=== PATIENT | female | born 1965 | race Caucasian/White ===

== ENCOUNTER → 2016-05-15 | Outpatient (CLI) | payer OTHER ==
[~2016-05-15] MED LIST: /CELE20CA PO; /DULO30CA OR; /GLYB5TA; /LAMO15TA PO; /ZOLP6ER PO; ACTO15TA OR; ALBU0.63 INH; AMBI10TA PO; ASPI81TA83 PO; BUPR15TA PO; BYETTA; CALC-136 PO; CELE50CA PO; CETI10TA PO; CINN500T PO; CINNAMON PO; CRANCAP11 PO; CRES5TAB PO; CYMB1CAP PO; FISH1000 PO; FLEC1.3D TD; FLECTOR PATCH TD; FLEXERIL OR; FLON0.05; GLIP5TAB2 OR; GLIP5TAB8 PO; GLUC500T; GLUC500T3 OR; GLUC850T OR; HYDR50IN3 PO; INSULANT SC; JANU100T PO; JANUVIA PO; LIDO5DIS; LIDO5DIS TD; LISI10TA4; LISI10TA4 PO; LOVAZA PO; LYRI75CA; LYRI75CA PO; MAXA10TA17 PO; MELA3TAB12 PO; METF-415 PO; NEXI20CA PO; OXYC1SOL PO; OXYCODONE IR PO; PERC7.5T12 PO; Pain Cream TD; ROSI4TA PO; TPS CREAM TOP; TRAM50TA2 PO; VICO5TAB OR; VITA500T53 PO; VYTO10TA5 PO; ZANA2CAP OR; ZANA4CAP PO; [UNRECOGNIZED DRUG - CODE] PO; [UNRECOGNIZED DRUG - CODE] PO; [UNRECOGNIZED DRUG - OTHER] OR; [UNRECOGNIZED DRUG - OTHER] PO; [UNRECOGNIZED DRUG - OTHER] PO
--- NOTE | 2016-05-19 00:09 | ECWPNPC ---
PATIENT NAME: RONY BAEZA : 1965 GENDER: FEMALE VISIT DATE: 05/15/2016 DISCHARGE DATE: 05/15/16 1607 VISIT LOCKED DATE TIME: PHYSICIAN: BRANDO GUNTER RESOURCE: BRANDO GUNTER REASON FOR APPOINTMENT 1. RECONSULT FIBROMYALGIA HISTORY OF PRESENT ILLNESS HISTORY OF PRESENT ILLNESS: HERE FOR RECONSULT OF FIBROMYALGIA.LAST WAS SEEN BY JUSTIN HART GAME AND FISH PROTECTOR IN OCTOBER 2014.CHIEF AREA OF PAIN NECK AND UPPER BACK.RATING PAIN VAS 8/10.HAD EPISODE OF PLAQUE PSORIASIS IN 2016 AFTER SEVERE SUNBURN.WAS ON CINDY X 2MOS WITH IMPROVEMENT IN [place].STATES BACK AND NECK HAS GOTTEN WORSE SINCE LAST VISIT.HISTORY OF SJORENS SYNDROME.HISTORY OF BILATERAL KNEE REPLACEMENT APROPXIMATLEY 2-3 YEARS AGO.REVIEWED CERVICAL MRI DONE 11-22-14.THIS IS SHOWING CERVICAL SPONDYLOSIS C3/4 THROUGH C6/7.SPINAL CORD COMPRESSION AT C3/4 LEVEL IS A NEW FINDING. FALL RISK SCREENING: SCREENING :NO FALLS IN THE PAST YEAR CURRENT MEDICATIONS TAKING METFORMIN HCL ER 750 MG TABLET EXTENDED RELEASE 24 HOUR 1 TABLET WITH EVENING MEAL ORALLY ONCE A DAY TAKING LANTUS 100 UNIT/ML SOLUTION SUBCUTANEOUS TAKING CYMBALTA 60 MG CAPSULE DELAYED RELEASE PARTICLES 1 CAPSULE ORALLY BID TAKING CELEBREX 200 MG CAPSULE 1 CAPSULE ORALLY ONCE A DAY TAKING WELLBUTRIN SR 150 MG TABLET EXTENDED RELEASE 12 HOUR 2 TABLET ORALLY TAKING NEXIUM 20 MG CAPSULE DELAYED RELEASE 1 CAPSULE ORALLY ONCE A DAY TAKING ASPIR-81 81 MG TABLET DELAYED RELEASE 1 TABLET ORALLY ONCE A DAY TAKING LISINOPRIL 5 MG TABLET ORALLY TAKING ZYRTEC ALLERGY 10 MG TABLET 1 TABLET ORALLY ONCE A DAY TAKING CHANTIX 1 MG TABLET 1 1/2 TABLET ORALLY DAILY TAKING CYCLOBENZAPRINE HCL 10 MG TABLET 1 TABLET ORALLY THREE TIMES A DAY TAKING PERCOCET 5-325 MG TABLET 1 TABLET NEEDED ORALLY EVERY 6 HRS MEDICATION LIST REVIEWED AND RECONCILED WITH THE PATIENT PAST MEDICAL HISTORY DIABETES HYPERLIPIDEMIA SMOKER PRESSION ALLERGIES PENICILLIN (FOR ALLERGIES USE ONLY): ANAPHYLAXIS MOTRIN: CRAMPIN SURGICAL HISTORY LEFT KNEE REPLACEMENT 2012 RIGHT KNEE REPLACEMENT 2013 TUBAL LIGATION 1994 FAMILY HISTORY FATHER: 61 YRS MOTHER: ALIVE SIBLINGS: ALIVE SISTER IN 2008 SUICIDEFATHER 2011 PANCREATIC CANCER. SOCIAL HISTORY GENERAL: TOBACCO USE ARE YOU A:CURRENT SMOKER HOW MANY CIGARETTES A DAY DO YOU SMOKE?6-10 HOW SOON AFTER YOU WAKE UP DO YOU SMOKE YOUR FIRST CIGARETTE?WITHIN 5 MIN PATIENT COUNSELED ON THE DANGERS OF TOBACCO USE AND URGED TO QUIT:05/15/2016 ARE YOU INTERESTED IN QUITTING?READY TO QUIT COUNSELED THE PATIENT ON TOBACCO USE, CESSATION [id number]/21/2017 SMOKING CESSATION INFORMATION GIVEN05/15/2016 OCCUPATION: CURRENTLY GOING TO SCHOOL. DIET: NO CONCENTRATED SWEETS.. EXERCISE: NO REGULAR EXERCISE, WALKS. MARITAL STATUS: . JAINISM: NO PREFERENCE. LANGUAGE: JAPANESE. LEARNING BARRIERS / SPECIAL NEEDS ORIENTED TO PLAN OF CARE: PATIENT, PAIN MANAGEMENT PATIENT, ORIENTED TO PLAN OF CARE: PATIENT, PAIN MANAGEMENT PATIENT. NEW PATIENT PAIN DIARY TODAY'S VISITNOTES FROM 0-10, WHAT LEVEL IS YOUR PAIN TODAY?0 PAIN CLINIC PFS, CLERGY, PUBLIC HEALTH REFERRALS PFS REFERRAL NEEDED?NO CLERGY REFERRAL NEEDED?NO PUBLIC HEALTH REFERRAL NEEDED?NO WAS THE PROVIDER NOTIFIED OF ANY PERTINENT INFO?NO PFS REFERRAL NEEDED?NO CLERGY REFERRAL NEEDED?NO PUBLIC HEALTH REFERRAL NEEDED?NO WAS THE PROVIDER NOTIFIED OF ANY PERTINENT INFO?NO REVIEW OF SYSTEMS CONSTITUTIONAL: ANY CHANGE IN YOUR MEDICAL CONDITION? NO . RECENT ILLNESS DENIES . CHILLS NO . FEVER NO . WEIGHT LOSS DENIES . INFECTION: DO YOU HAVE NEW INFECTIONS? NO . DO YOU HAVE HISTORY OF MRSA? NO . MUSCULOSKELETAL: ANY NEW PATTERNS OF PAIN OR NUMBNESS? NO . GASTROENTEROLOGY: ANY NEW CHANGE IN BOWEL CONTROL? NO . GENITOURINARY: ANY NEW CHANGE IN BLADDER CONTROL? NO . IS THERE A CHANCE YOU COULD BE ? NO . HEMATOLOGY/LYMPH: DO YOU TAKE ANY BLOOD THINNERS? (FOR EXAMPLE- COUMADIN, PLAVIX, AGGRENOX, PLATEL, PRADAXA, OR XARELTO) NO . WHEN WAS YOUR LAST DOSE? DATE: TIME: . NEUROLOGY: HAVE YOU FALLEN IN THE PAST 6 MONTHS? NO . ANY NEW EXTREMITY NUMBNESS OR WEAKNESS? NO . CARDIOLOGY: DO YOU HAVE A PACEMAKER OR DEFIBRILLATOR? NO . CHEST PAIN DENIES . SHORTNESS OF BREATH DENIES . RESPIRATORY: HAVE YOU BEEN SICK IN THE PAST WEEK? NO . FEVER NO . FLU LIKE SYMPTOMS? NO . COUGH NO, DENIES . SHORTNESS OF BREATH DENIES . INTEGUMENTARY: DO YOU HAVE ANY RASHES OR OPEN SORES? NO . ALLERGIC/IMMUNO: ARE YOU ALLERGIC TO SHELLFISH OR IV DYE? NO . ANY NEW ALLERGIES? NO . PSYCHIATRIC: DO YOU HAVE THOUGHTS OF HURTING YOURSELF OR SOMEONE ELSE? NO . ARE YOU ABUSED, NEGLECTED, OR IN AN UNSAFE ENVIRONMENT? NO . ENDOCRINOLOGY: ARE YOU DIABETIC? NO . OTHER: DO YOU NEED ANY PRESCRIPTIONS? YES . IF YES, PLEASE LIST: ____ . ANY NEW PROBLEMS WITH YOUR MEDICATIONS? NO . WHEN DID YOU LAST EAT? ____ . WHEN DID YOU LAST DRINK? ____ . WHAT DID YOU LAST DRINK? ____ . NAME OF PERSON DRIVING YOU HOME? ____ . DO YOU HAVE ANY OTHER QUESTIONS OR CONCERNS NO . REVIEWED BY: PROVIDER: BRANDO ALMODOVAR . VITAL SIGNS WT 215.6 LBS, HT 63.3 IN, BMI 37.83 INDEX, BP 133/89 MM HG, HR 103 /MIN, RR 16 /MIN, TEMP 97.0 F, OXYGEN SAT % 95%, REVIEWED BY: KG. EXAMINATION GENERAL EXAMINATION: LUNGS:LUNG SOUNDS ARE CLEAR. HEART:HEART RATE REGULAR. MUSCULOSKELETAL:*, MUSCLE STRENGTH TESTING 5/5 BILATERAL UPPER AND LOWER EXTREMITIES.PALPATION: POSITIVE FOR PAIN OVER L/S SPINE. POSITIVE FOR PAIN OVER L/S PARASPINALS.POSITIVE FOR PAIN OVER CERVICAL AXIS AND CERVICAL SPINALS.ROJM NECK AND LOW BACK IS FULL WITH INCREASE IN PAIN NOTED. . DIAGNOSTIC:MRI CERVICAL TMBUW-12-18-2015-REVIEWED.. ASSESSMENTS CERVICAL SPONDYLOLYSIS - M43.02 (PRIMARY) MYALGIA - M79.1 TREATMENT CERVICAL SPONDYLOLYSIS START LYRICA CAPSULE, 75 MG, 1 CAPSULE, ORALLY, TWICE A DAY MDD2, 30 DAY(S), 60, REFILLS 2 INJECTION FACET JOINT/NERVE CERVICAL LEFT INJECTION FACET JOINT/NERVE CERVICAL RIGHT PREVENTIVE MEDICINE PAIN CLINIC TEACHING: MEDITATION LYRICA EDUCATION PROVIDED. PROCEDURE CODES FA211 ESTABILISHED PATIENT [facility] CHARGE DISPOSITION & COMMUNICATION FOLLOW UP 2WK POST Torito ANDERSON (REASON: BILAT. C4/5-C5/6 THERAPEUTIC FACET BLOCK) ELECTRONICALLY SIGNED BY SCOOBY ARELLANO ON 05/18/2016 AT 04:56 PM EST DISCLAIMER : THIS IS A VISIT SUMMARY EXTRACTED FROM THE [employer] CHART. IT IS NOT A COPY OF THE [employer] PROGRESS NOTE. EMMANUEL
== END ==
LOC: M PAIN 14:20
PROVIDERS: ATTEND Nurse Practitioner Family
DX: G89.29 Other chronic pain (principal); M79.7 Fibromyalgia; M43.02 Spondylolysis, cervical region; E11.9 Type 2 diabetes mellitus without complications; E78.5 Hyperlipidemia, unspecified; F17.200 Nicotine dependence, unspecified, uncomplicated; Z88.0 Allergy status to penicillin; Z88.6 Allergy status to analgesic agent; Z79.84 Long term (current) use of oral hypoglycemic drugs; Z79.82 Long term (current) use of aspirin; Z79.891 Long term (current) use of opiate analgesic; Z79.899 Other long term (current) drug therapy

== ENCOUNTER → 2016-06-19 | Outpatient (CLI) | payer OTHER ==
[~2016-06-19] MED LIST changes: +BUPIVACAINE HCL 0.25% 30 ML VIAL As Ordered ONE; +ISOVUE-M 300 61% 15ML VIAL (Q9967) As Ordered ONE; +LIDOCAINE 1% SDV INJ 30 ML VIAL As Ordered ONE; +TRIAMCINOLONE ACETONIDE SUSP 40 MG/ML VIAL (J3301) As Ordered ONE; +diazePAM 5 MG TAB As Ordered ONE; +oxyCODONE 5MG TAB As Ordered ONE
--- NOTE | 2016-06-19 10:44 | REP ---
FLUOROSCOPIC GUIDANCE FOR CERVICAL FACET BLOCK: 06/19/2016. Clinical history: Neck pain. Findings: A single image from C-arm fluoroscopy provided to Dr. Wright of the pain clinic for bilateral cervical facet block. [place] overlie the pelvis and facets at C7 and C6. Fluoroscopy time: 28 seconds. Signed by Parth Camarena MD 06/19/2016 05:05 P
--- NOTE | 2016-06-22 00:46 | ECWPNPC ---
PATIENT NAME: RONY BAEZA : 1965 GENDER: FEMALE VISIT DATE: 06/19/2016 DISCHARGE DATE: 06/19/16 1035 VISIT LOCKED DATE TIME: PHYSICIAN: BARRERA CURTIS RESOURCE: BARRERA CURTIS REASON FOR APPOINTMENT 1. RIGHT CERVICAL FACET HISTORY OF PRESENT ILLNESS HISTORY OF PRESENT ILLNESS: PAIN THE PATIENT DESCRIBES THE PAIN... FALL RISK SCREENING: SCREENING :NO FALLS IN THE PAST YEAR CURRENT MEDICATIONS TAKING METFORMIN HCL ER 750 MG TABLET EXTENDED RELEASE 24 HOUR 1 TABLET WITH EVENING MEAL ORALLY TWICE A DAY, NOTES: 06-18-16 PM TAKING LANTUS 100 UNIT/ML SOLUTION 70 UNITS SUBCUTANEOUS ONCE DAILY, NOTES: 06-18-16 PM TAKING CYMBALTA 60 MG CAPSULE DELAYED RELEASE PARTICLES 1 CAPSULE ORALLY BID, NOTES: 06-18-16 PM TAKING CELEBREX 200 MG CAPSULE 1 CAPSULE ORALLY ONCE A DAY, NOTES: 06-18-16 AM TAKING WELLBUTRIN SR 150 MG TABLET EXTENDED RELEASE 12 HOUR 2 TABLET ORALLY , NOTES: 06-18-16 AM TAKING NEXIUM 20 MG CAPSULE DELAYED RELEASE 1 CAPSULE ORALLY ONCE A DAY, NOTES: 06-18-16 AM TAKING ASPIR-81 81 MG TABLET DELAYED RELEASE 1 TABLET ORALLY ONCE A DAY, NOTES: 06-18-16 PM TAKING LISINOPRIL 5 MG TABLET ORALLY DAILY, NOTES: 06-18-16 PM TAKING ZYRTEC ALLERGY 10 MG TABLET 1 TABLET ORALLY ONCE A DAY, NOTES: 06-18-16 PM TAKING CYCLOBENZAPRINE HCL 10 MG TABLET 1 TABLET ORALLY THREE TIMES A DAY, NOTES: COUPLE DAYS AGO NOT-TAKING PERCOCET 5-325 MG TABLET 1 TABLET NEEDED ORALLY EVERY 6 HRS, NOTES: NO PILLS NOT-TAKING LYRICA 75 MG CAPSULE 1 CAPSULE ORALLY TWICE A DAY MDD2, NOTES: NO PILLS DISCONTINUED CHANTIX 1 MG TABLET 1 1/2 TABLET ORALLY DAILY MEDICATION LIST REVIEWED AND RECONCILED WITH THE PATIENT PAST MEDICAL HISTORY DIABETES HYPERLIPIDEMIA SMOKER PRESSION ALLERGIES PENICILLIN (FOR ALLERGIES USE ONLY): ANAPHYLAXIS MOTRIN: CRAMPIN ERYTHROMYCIN: NAUSEA: CONTRAINDICATION REVIEW OF SYSTEMS CONSTITUTIONAL: ANY CHANGE IN YOUR MEDICAL CONDITION? NO . CHILLS NO . FEVER NO . INFECTION: DO YOU HAVE NEW INFECTIONS? NO . DO YOU HAVE HISTORY OF MRSA? NO . MUSCULOSKELETAL: ANY NEW PATTERNS OF PAIN OR NUMBNESS? YES, BETWEEN SHOULDER BLADES IS TINGLY . GASTROENTEROLOGY: ANY NEW CHANGE IN BOWEL CONTROL? NO . GENITOURINARY: ANY NEW CHANGE IN BLADDER CONTROL? NO . IS THERE A CHANCE YOU COULD BE ? NO . HEMATOLOGY/LYMPH: DO YOU TAKE ANY BLOOD THINNERS? (FOR EXAMPLE- COUMADIN, PLAVIX, AGGRENOX, PLATEL, PRADAXA, OR XARELTO) NO . WHEN WAS YOUR LAST DOSE? DATE: TIME: . NEUROLOGY: HAVE YOU FALLEN IN THE PAST 6 MONTHS? NO . ANY NEW EXTREMITY NUMBNESS OR WEAKNESS? NO . CARDIOLOGY: DO YOU HAVE A PACEMAKER OR DEFIBRILLATOR? NO . RESPIRATORY: HAVE YOU BEEN SICK IN THE PAST WEEK? NO . FEVER NO . FLU LIKE SYMPTOMS? NO . COUGH NO . INTEGUMENTARY: DO YOU HAVE ANY RASHES OR OPEN SORES? NO . ALLERGIC/IMMUNO: ARE YOU ALLERGIC TO SHELLFISH OR IV DYE? NO . ANY NEW ALLERGIES? NO . PSYCHIATRIC: DO YOU HAVE THOUGHTS OF HURTING YOURSELF OR SOMEONE ELSE? NO . ARE YOU ABUSED, NEGLECTED, OR IN AN UNSAFE ENVIRONMENT? NO . ENDOCRINOLOGY: ARE YOU DIABETIC? YES . OTHER: DO YOU NEED ANY PRESCRIPTIONS? YES . IF YES, PLEASE LIST: NEEDS PRIOR AUTH FOR LYRICA . ANY NEW PROBLEMS WITH YOUR MEDICATIONS? NO . WHEN DID YOU LAST EAT? 06-18-16 PM . WHEN DID YOU LAST DRINK? 06-18-16 PM . WHAT DID YOU LAST DRINK? DIET PEPSI . NAME OF PERSON DRIVING YOU HOME? RAJI BAEZA . DO YOU HAVE ANY OTHER QUESTIONS OR CONCERNS NO . REVIEWED BY: PROVIDER: . VITAL SIGNS WT 220 LBS, HT 63.3 IN, BMI 38.60 INDEX, BP 108/68 MM HG, HR 89 /MIN, RR 16 /MIN, TEMP 96.2 F, OXYGEN SAT % 98, NA INITIALS TL 0852, REVIEWED BY: CM. 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 BARRERA CURTIS TRIAL JUSTICE NONE ANESTHESIA LOCAL PRE PROCEDURE NOTE THE PATIENT HAS HISTORY OF CHRONIC CERVICAL PAIN. I EVALUATE THE PATIENT AND REVIEWED THE CHART. I WENT OVER THE RISKS, ALTERNATIVES, AND BENEFITS ASSOCIATED WITH THIS PROCEDURE. THE PATIENT WOULD LIKE TO PROCEED AND GIVE CONSENT TO PERFORMED THE PROCEDURE. THE PATIENT DENIES UNEXPLAINABLE WEIGHT LOSS, FEVER, CHILLS, OR NEW CHANGES IN URINARY OR BOWEL CONTROL DESCRIPTION OF PROCEDURE THE PATIENT WAS BROUGHT TO THE PROCEDURE ROOM AND PLACED IN THE PRONE POSITION. THE CERVICOTHORACIC AREA WAS CLEANED WITH CHLORAPREP SOLUTION AND DRAPED ASEPTICALLY. THE PROCEDURE WAS DONE UNDER STERILE CONDITIONS. I CHECKED LATERALITY AND THE LEVEL WHERE THE PROCEDURE WAS GOING TO BE PERFORMED WITH THE PATIENT AND THE SUPPORTING STAFF AT THE MOMENT OF THE TIME OUT IN THE PROCEDURE ROOM. UNDER FLUOROSCOPIC GUIDANCE, TARGET POINT WAS SELECTED AT THE RIGHT AND LEFT C6-C7 AND RIGHT AND LEFT C7-T1 CERVICAL FACET JOINT. TARGET POINTS WERE SELECTED AFTER LATERAL ROTATION AND TILT OF THE MAGNIFIER OF THE C-ARM. LIDOCAINE 0.5% WAS USED TO NUMB THE SKIN AND THE SUBCUTANEOUS TISSUE BELOW IT. SPINAL NEEDLES, 22-GAUGE, WERE ADVANCED UNDER FLUOROSCOPIC GUIDANCE AND FOLLOWING PATIENT FEEDBACK UNTIL THE TARGETS WERE TOUCHED. THE POSITION OF THE NEEDLES WAS VERIFIED WITH AP AND LATERAL VIEWS. AFTER PROPER POSITION OF THE NEEDLES WAS ACHIEVED, ISOVUE M DYE 30, 0.1 ML WAS INJECTED SHOWING SPREAD OF THE DYE. THEN A SOLUTION OF 0.9 ML OF BUPIVACAINE 0.125% AND KENALOG 10 MG WAS INJECTED AT EACH SITE. THERE WAS NO EVIDENCE OF BLOOD, PARESTHESIA OR CEREBROSPINAL FLUID DURING THE PROCEDURE. THE PATIENT WAS SENT TO THE RECOVERY ROOM. THE PATIENT WAS MOVING THE EXTREMITIES AND DOING WELL. THERE WAS NO COMPLICATION DURING THE PROCEDURE. FLUOROSCOPY TIME WAS 28 SECONDS POST PROCEDURE NOTE THE PATIENT WILL BE SEEN IN A FOLLOW UP IN THE NEXT FEW WEEKS. INSTRUCTIONS WERE GIVEN, QUESTIONS WERE ANSWERED, AND THE PATIENT EXPRESSED UNDERSTANDING AND AGREES WITH THE PLAN. I, SELINA BELL, DOCUMENTED THE ABOVE INFORMATION ACTING A SCRIBE FOR DR. CURTIS. I, DR. CURTIS, HAVE REVIEWED THE ABOVE DOCUMENT, SCRIBED BY SELINA BELL, AND I VERIFY THAT IT IS ACCURATE DIAGNOSTIC IMAGING [facility] FACET BLOCK (PAIN)[id number] PROCEDURE CODES 27719 INJ PARAVERT F JNT C/T 1 LEV 99551 INJ PARAVERT F JNT C/T 2 LEV 6045F RADXPS IN END [id number] PXD DISPOSITION & COMMUNICATION FOLLOW UP 3 WEEKS ELECTRONICALLY SIGNED BY BARRERA CURTIS MD ON 06/21/2016 AT 01:48 PM EDT DISCLAIMER : THIS IS A VISIT SUMMARY EXTRACTED FROM THE [employer] CHART. IT IS NOT A COPY OF THE [employer] PROGRESS NOTE. MTDD
== END ==
LOC: M PAIN 08:40
PROVIDERS: ATTEND Anesthesiology
DX: G89.29 Other chronic pain (principal); M47.812 Spondylosis without myelopathy or radiculopathy, cervical region; M47.813 Spondylosis without myelopathy or radiculopathy, cervicothoracic region; E11.9 Type 2 diabetes mellitus without complications; E78.5 Hyperlipidemia, unspecified; F17.200 Nicotine dependence, unspecified, uncomplicated; Z88.0 Allergy status to penicillin; Z88.6 Allergy status to analgesic agent; Z88.1 Allergy status to other antibiotic agents; Z79.84 Long term (current) use of oral hypoglycemic drugs; Z79.82 Long term (current) use of aspirin; Z79.899 Other long term (current) drug therapy
CPT/HCPCS: 64490; 64491; J3301; Q9967

== ENCOUNTER → 2016-07-24 | Outpatient (CLI) | payer OTHER ==
[~2016-07-24] MED LIST changes: -BUPIVACAINE HCL 0.25% 30 ML VIAL As Ordered ONE; -ISOVUE-M 300 61% 15ML VIAL (Q9967) As Ordered ONE; -LIDOCAINE 1% SDV INJ 30 ML VIAL As Ordered ONE; -TRIAMCINOLONE ACETONIDE SUSP 40 MG/ML VIAL (J3301) As Ordered ONE; -diazePAM 5 MG TAB As Ordered ONE; -oxyCODONE 5MG TAB As Ordered ONE
--- NOTE | 2016-07-31 01:17 | ECWPNPC ---
PATIENT NAME: RONY BAEZA : 1965 GENDER: FEMALE VISIT DATE: 07/24/2016 DISCHARGE DATE: 07/24/16 1553 VISIT LOCKED DATE TIME: PHYSICIAN: JUSTIN HART RESOURCE: JUSTIN HART REASON FOR APPOINTMENT 1. POST PROCEDURE HISTORY OF PRESENT ILLNESS HISTORY OF PRESENT ILLNESS: PAIN THE PATIENT DESCRIBES THE PAIN... FALL RISK SCREENING: SCREENING :NO FALLS IN THE PAST YEAR TODAY'S VISIT: NOTES: RATES PAIN TODAY 8/10.DESCRIBES PAIN ACHING, BURNING, AND CONSTANT., SHARP AND STABBING.HAS BEEN OUT OF CYMBALTA X 1-2 DAYS, CELEBREX X 2 WEEKS.AND FLEXERIL X 2 WEEKS. WAS ON HUMIRA X 4 DOSES AND THEN PSORIASIS WENT INTO REMISSION AND HAS NOT BEEN ON IT IN 1 YEAR. WAS NOT ABLE TO GET LYRICA - WAS TOLD AT PHARMACY NEEDED PRIOR AUTH FROM . HAS BEEN OFF LYRICA X 1 YEAR. CENTER OF BACK AND SHOULDERS HURTS THE MOST. FELL 2 WEEKS AGO - TRIPPED OVER FEET. CAN HEAR GRING=DING IN NECK. AND ALONG SPINE BETWEEN SHOULDER BLADES.IS S/P BILATERAL THERAPEUTIC CERVICAL FACET BLOCK ON06/19/16. HAD PAIN RELIEF FOR 2 DAYS AND THEN THE NUMB TINGLING DISCOMFORT RETURNED AT NECK AND ACROSS THE SHOULDERS.. CURRENT MEDICATIONS TAKING METFORMIN HCL ER 750 MG TABLET EXTENDED RELEASE 24 HOUR 1 TABLET WITH EVENING MEAL ORALLY TWICE A DAY TAKING LANTUS 100 UNIT/ML SOLUTION 70 UNITS SUBCUTANEOUS ONCE DAILY TAKING CYMBALTA 60 MG CAPSULE DELAYED RELEASE PARTICLES 1 CAPSULE ORALLY BID TAKING CELEBREX 200 MG CAPSULE 1 CAPSULE ORALLY ONCE A DAY TAKING WELLBUTRIN SR 150 MG TABLET EXTENDED RELEASE 12 HOUR 2 TABLET ORALLY TAKING NEXIUM 20 MG CAPSULE DELAYED RELEASE 1 CAPSULE ORALLY ONCE A DAY TAKING ASPIR-81 81 MG TABLET DELAYED RELEASE 1 TABLET ORALLY ONCE A DAY TAKING LISINOPRIL 5 MG TABLET ORALLY DAILY TAKING ZYRTEC ALLERGY 10 MG TABLET 1 TABLET ORALLY ONCE A DAY TAKING CYCLOBENZAPRINE HCL 10 MG TABLET 1 TABLET ORALLY THREE TIMES A DAY TAKING EXCEDRIN MIGRAINE 250-250-65 MG TABLET 2 TABLETS NEEDED ORALLY EVERY 6 HRS NEEDED NOT-TAKING PERCOCET 5-325 MG TABLET 1 TABLET NEEDED ORALLY EVERY 6 HRS, NOTES: NO PILLS NOT-TAKING LYRICA 75 MG CAPSULE 1 CAPSULE ORALLY TWICE A DAY MDD2, NOTES: NO PILLS MEDICATION LIST REVIEWED AND RECONCILED WITH THE PATIENT PAST MEDICAL HISTORY DIABETES HYPERLIPIDEMIA SMOKER PRESSION ALLERGIES PENICILLIN (FOR ALLERGIES USE ONLY): ANAPHYLAXIS MOTRIN: CRAMPIN ERYTHROMYCIN: NAUSEA: CONTRAINDICATION REVIEW OF SYSTEMS CONSTITUTIONAL: ANY CHANGE IN YOUR MEDICAL CONDITION? YES , MORE FREQ MIGRAINES // VERY SEVERE!! NEW PSORIASIS DX . CHILLS NO . FEVER NO . INFECTION: DO YOU HAVE NEW INFECTIONS? NO . DO YOU HAVE HISTORY OF MRSA? NO . MUSCULOSKELETAL: ANY NEW PATTERNS OF PAIN OR NUMBNESS? YES, MUSCLE SPASMS IN TOES, ANKLE, LEFT HIP, ARCH OF FOOT . GASTROENTEROLOGY: ANY NEW CHANGE IN BOWEL CONTROL? NO . GENITOURINARY: ANY NEW CHANGE IN BLADDER CONTROL? NO . IS THERE A CHANCE YOU COULD BE ? NO . HEMATOLOGY/LYMPH: DO YOU TAKE ANY BLOOD THINNERS? (FOR EXAMPLE- COUMADIN, PLAVIX, AGGRENOX, PLATEL, PRADAXA, OR XARELTO) NO . WHEN WAS YOUR LAST DOSE? DATE: TIME: . NEUROLOGY: HAVE YOU FALLEN IN THE PAST 6 MONTHS? YES, 2 WEEKS AGO. JUST FELL OVER ON HER LEFT SIDE AND LANDED ON SHOULDER . ANY NEW EXTREMITY NUMBNESS OR WEAKNESS? NO . CARDIOLOGY: DO YOU HAVE A PACEMAKER OR DEFIBRILLATOR? NO . RESPIRATORY: HAVE YOU BEEN SICK IN THE PAST WEEK? NO . FEVER NO . FLU LIKE SYMPTOMS? NO . DO YOU USE ANY TYPE OF TOBACCO (SMOKE, SMOKELESS, CHEW)? HAS STOPPED SMOKING BUT DOES OCCASIONALLY CHEAT . COUGH NO . INTEGUMENTARY: DO YOU HAVE ANY RASHES OR OPEN SORES? NO . ALLERGIC/IMMUNO: ARE YOU ALLERGIC TO SHELLFISH OR IV DYE? NO . ANY NEW ALLERGIES? NO . PSYCHIATRIC: DO YOU HAVE THOUGHTS OF HURTING YOURSELF OR SOMEONE ELSE? NO . ARE YOU ABUSED, NEGLECTED, OR IN AN UNSAFE ENVIRONMENT? NO . ENDOCRINOLOGY: ARE YOU DIABETIC? YES STABLE WHEN TAKES INSULIN DIRECTED. . OTHER: DO YOU NEED ANY PRESCRIPTIONS? YES . IF YES, PLEASE LIST: FLEXERIL, CYMBALTA, CELEBREX, PAIN MED . ANY NEW PROBLEMS WITH YOUR MEDICATIONS? NO . WHEN DID YOU LAST EAT? ____ . WHEN DID YOU LAST DRINK? ____ . WHAT DID YOU LAST DRINK? ____ . NAME OF PERSON DRIVING YOU HOME? ____ . DO YOU HAVE ANY OTHER QUESTIONS OR CONCERNS NO . REVIEWED BY: PROVIDER: JUSTIN ALMODOVAR . VITAL SIGNS WT 223.8 LBS, HT 63.3 IN, BMI 39.27 INDEX, BP 144/86 MM HG, HR 104 /MIN, RR 16 /MIN, TEMP 96.7 F, OXYGEN SAT % 97%, NA INITIALS TL 1501, REVIEWED BY: NL. EXAMINATION GENERAL EXAMINATION: PSYCHALERT , ORIENTED X 3 , TALKATIVE, SOMEWHAT IRRITABLE. LUNGS:CLEAR TO AUSCULTATION BILATERALLY. HEART:HEART RATE REGULAR. MUSCULOSKELETAL:TRIGGER POINTS AND TIGHT FIBROUS BANDS IDENTIFIED OVER THE CERVICAL PARASPINOUS MUSCLES AND ACROSS THE TRAPEZIUS BILATERALLY. DECREASE ROM WITH NECK FLEXION AND EXTENSION. SLIGHT DECREASE GRAPHITE GRINDER STRENGTH RIGHT UPPER EXTREMITY. TENDER OVER LUMBAR PARAVERTEBRAL MUSCLES. POSTURE UPRIGHT. GAIT NONANTALGIC. . JOINTS:NO TENDERNESS OR EDEMAOVER BILATERAL KNEE JOINTS. FULL ROM AND EXTENSION NOTED. SKIN:NO RASHES. ASSESSMENTS SPONDYLOSIS WITHOUT MYELOPATHY OR RADICULOPATHY, CERVICAL REGION - M47.812 (PRIMARY) SPONDYLOSIS WITHOUT MYELOPATHY OR RADICULOPATHY, CERVICOTHORACIC REGION - M47.813 FIBROMYALGIA - M79.7 TREATMENT SPONDYLOSIS WITHOUT MYELOPATHY OR RADICULOPATHY, CERVICAL REGION REFILL CYMBALTA CAPSULE DELAYED RELEASE PARTICLES, 60 MG, 1 CAPSULE, ORALLY, BID, 30 DAY(S), 60 CAPSULE, REFILLS 5 REFILL CELEBREX CAPSULE, 200 MG, 1 CAPSULE, ORALLY, ONCE A DAY, 30 DAY(S), 30 CAPSULE, REFILLS 5 REFILL CYCLOBENZAPRINE HCL TABLET, 10 MG, 1 TABLET, ORALLY, THREE TIMES A DAY, 30 DAY(S), 90 TABLET, REFILLS 5 CERVICAL EPIDURAL RIGHT NOTES: HOLD DIABETES MED AM OF INJECTION,CERVICAL EPIDURAL INJECTION: YOUR EXPERIENCE MATERIAL WAS PRINTED,CERVICAL EPIDURAL INJECTION MATERIAL WAS PRINTED. PREVENTIVE MEDICINE GAVE INFO ON PREPROCEDURE CARE AND CERVICAL EPIDURAL INFO. DISPOSITION & COMMUNICATION FOLLOW UP AFTER INJECTION (REASON: CHECK AUTH FOR CESB NEED TO DO BEEFORE 5.18.17) ELECTRONICALLY SIGNED BY LEONARD NO ON 07/30/2016 AT 06:02 PM EDT DISCLAIMER : THIS IS A VISIT SUMMARY EXTRACTED FROM THE [employer] CHART. IT IS NOT A COPY OF THE [employer] PROGRESS NOTE. EMMANUEL
== END ==
LOC: M PAIN 15:00
PROVIDERS: ATTEND Nurse Practitioner Family
DX: G89.29 Other chronic pain (principal); M47.812 Spondylosis without myelopathy or radiculopathy, cervical region; M47.813 Spondylosis without myelopathy or radiculopathy, cervicothoracic region; M79.7 Fibromyalgia; E11.9 Type 2 diabetes mellitus without complications; E78.5 Hyperlipidemia, unspecified; F17.200 Nicotine dependence, unspecified, uncomplicated; Z88.0 Allergy status to penicillin; Z88.1 Allergy status to other antibiotic agents; Z88.6 Allergy status to analgesic agent; G43.909 Migraine, unspecified, not intractable, without status migrainosus; Z79.84 Long term (current) use of oral hypoglycemic drugs; Z79.4 Long term (current) use of insulin; Z79.82 Long term (current) use of aspirin; Z79.899 Other long term (current) drug therapy

== ENCOUNTER → 2017-04-02 | Outpatient (CLI) | payer OTHER | LOC: M PAIN 13:00 | DX: M47.812 Spondylosis without myelopathy or radiculopathy, cervical region (principal); M47.813 Spondylosis without myelopathy or radiculopathy, cervicothoracic region; M79.7 Fibromyalgia; E11.9 Type 2 diabetes mellitus without complications; E78.5 Hyperlipidemia, unspecified; F17.210 Nicotine dependence, cigarettes, uncomplicated; Z79.82 Long term (current) use of aspirin; Z79.84 Long term (current) use of oral hypoglycemic drugs; Z79.899 Other long term (current) drug therapy; Z88.0 Allergy status to penicillin; Z88.1 Allergy status to other antibiotic agents; Z88.8 Allergy status to other drugs, medicaments and biological substances | CPT/HCPCS: G0463 ==

== ENCOUNTER → 2017-05-10 | Outpatient (CLI) | payer OTHER | LOC: M PAIN 08:30 | DX: M47.812 Spondylosis without myelopathy or radiculopathy, cervical region (principal); M47.813 Spondylosis without myelopathy or radiculopathy, cervicothoracic region; M79.7 Fibromyalgia; E11.9 Type 2 diabetes mellitus without complications; M35.00 Sjogren syndrome, unspecified; F17.210 Nicotine dependence, cigarettes, uncomplicated; Z79.84 Long term (current) use of oral hypoglycemic drugs; Z79.82 Long term (current) use of aspirin; Z79.899 Other long term (current) drug therapy; Z88.0 Allergy status to penicillin; Z88.8 Allergy status to other drugs, medicaments and biological substances | CPT/HCPCS: G0463 ==

== ENCOUNTER → 2017-07-08 | Outpatient (CLI) | payer OTHER ==
[~2017-07-08] MED LIST changes: -/CELE20CA PO; -/DULO30CA OR; -/GLYB5TA; -/LAMO15TA PO; -/ZOLP6ER PO; -ACTO15TA OR; -ALBU0.63 INH; -AMBI10TA PO; -ASPI81TA83 PO; +BUPIVACAINE HCL 0.25% 30 ML VIAL As Ordered; -BUPR15TA PO; -BYETTA; -CALC-136 PO; -CELE50CA PO; -CETI10TA PO; -CINN500T PO; -CINNAMON PO; -CRANCAP11 PO; -CRES5TAB PO; -CYMB1CAP PO; -FISH1000 PO; -FLEC1.3D TD; -FLECTOR PATCH TD; -FLEXERIL OR; -FLON0.05; -GLIP5TAB2 OR; -GLIP5TAB8 PO; -GLUC500T; -GLUC500T3 OR; -GLUC850T OR; -HYDR50IN3 PO; -INSULANT SC; +ISOVUE-M 300 61% 15ML VIAL (Q9967) As Ordered; -JANU100T PO; -JANUVIA PO; -LIDO5DIS; -LIDO5DIS TD; +LIDOCAINE 1% SDV INJ 30 ML VIAL As Ordered; -LISI10TA4; -LISI10TA4 PO; -LOVAZA PO; -LYRI75CA; -LYRI75CA PO; -MAXA10TA17 PO; -MELA3TAB12 PO; -METF-415 PO; -NEXI20CA PO; -OXYC1SOL PO; -OXYCODONE IR PO; -PERC7.5T12 PO; -Pain Cream TD; -ROSI4TA PO; -TPS CREAM TOP; -TRAM50TA2 PO; +TRIAMCINOLONE ACETONIDE SUSP 40 MG/ML VIAL (J3301) As Ordered; -VICO5TAB OR; -VITA500T53 PO; -VYTO10TA5 PO; -ZANA2CAP OR; -ZANA4CAP PO; -[UNRECOGNIZED DRUG - CODE] PO; -[UNRECOGNIZED DRUG - CODE] PO; -[UNRECOGNIZED DRUG - OTHER] OR; -[UNRECOGNIZED DRUG - OTHER] PO; -[UNRECOGNIZED DRUG - OTHER] PO; +diazePAM 5 MG TAB As Ordered; +oxyCODONE 5MG TAB As Ordered
[2017-07-08 09:27] LABS: BEDSIDE GLUCOSE 126 MG/DL (70-105)
== END ==
LOC: M PAIN 08:45
DX: G89.29 Other chronic pain (principal); M47.812 Spondylosis without myelopathy or radiculopathy, cervical region; E11.9 Type 2 diabetes mellitus without complications; E78.5 Hyperlipidemia, unspecified; M35.00 Sjogren syndrome, unspecified; F17.210 Nicotine dependence, cigarettes, uncomplicated; Z79.4 Long term (current) use of insulin; Z79.82 Long term (current) use of aspirin; Z79.899 Other long term (current) drug therapy; Z88.0 Allergy status to penicillin; Z88.1 Allergy status to other antibiotic agents; Z88.6 Allergy status to analgesic agent; Z96.653 Presence of artificial knee joint, bilateral
CPT/HCPCS: J3301

== ENCOUNTER → 2017-07-22 | Outpatient (CLI) | payer OTHER | LOC: M PAIN 13:15 | DX: G89.29 Other chronic pain (principal); M47.812 Spondylosis without myelopathy or radiculopathy, cervical region; E11.9 Type 2 diabetes mellitus without complications; E78.5 Hyperlipidemia, unspecified; F17.210 Nicotine dependence, cigarettes, uncomplicated; F32.9 Major depressive disorder, single episode, unspecified; M35.00 Sjogren syndrome, unspecified; L40.0 Psoriasis vulgaris; L40.50 Arthropathic psoriasis, unspecified; Z96.653 Presence of artificial knee joint, bilateral; Z79.4 Long term (current) use of insulin; Z79.899 Other long term (current) drug therapy; Z88.0 Allergy status to penicillin; Z88.6 Allergy status to analgesic agent; Z88.1 Allergy status to other antibiotic agents | CPT/HCPCS: G0463 ==

== ENCOUNTER → 2018-06-23 | Outpatient (REF) | payer OTHER ==
[~2018-06-23] MED LIST changes: +/ZOLP6ER PO; +ACTO15TA OR; +ALBU0.63 INH; +AMBI10TA PO; +ASPI81TA83 PO; -BUPIVACAINE HCL 0.25% 30 ML VIAL As Ordered; +BUPR15TA PO; +BYETTA; +CALC-136 PO; +CELE1CAP4 PO; +CELE50CA PO; +CETI10TA PO; +CINN500T PO; +CINNAMON PO; +CRANCAP11 PO; +CRES5TAB PO; +CYMB1CAP PO; +CYMB1CAP5 OR; +FISH1000 PO; +FLEC1.3D TD; +FLECTOR PATCH TD; +FLEXERIL OR; +FLON0.05; +GLIP5TAB2 OR; +GLIP5TAB8 PO; +GLUC500T; +GLUC500T3 OR; +GLUC850T OR; +GLYB1TAB29; +HYDR50IN3 PO; +INSULANT SC; -ISOVUE-M 300 61% 15ML VIAL (Q9967) As Ordered; +JANU100T PO; +JANUVIA PO; +LAMI1TAB8 PO; +LIDO5DIS; +LIDO5DIS TD; -LIDOCAINE 1% SDV INJ 30 ML VIAL As Ordered; +LISI10TA4; +LISI10TA4 PO; +LOVAZA PO; +LYRI75CA; +LYRI75CA PO; +MAXA10TA17 PO; +MELA3TAB12 PO; +METF-415 PO; +NEXI20CA PO; +OXYC1SOL3 PO; +OXYCODONE IR PO; +PERC7.5T12 PO; +Pain Cream TD; +ROSI4TA PO; +TPS CREAM TOP; +TRAM50TA2 PO; -TRIAMCINOLONE ACETONIDE SUSP 40 MG/ML VIAL (J3301) As Ordered; +VICO5TAB OR; +VITA500T53 PO; +VYTO10TA5 PO; +ZANA2CAP OR; +ZANA4CAP PO; +[UNRECOGNIZED DRUG - CODE] PO; +[UNRECOGNIZED DRUG - CODE] PO; +[UNRECOGNIZED DRUG - OTHER] OR; +[UNRECOGNIZED DRUG - OTHER] PO; +[UNRECOGNIZED DRUG - OTHER] PO; -diazePAM 5 MG TAB As Ordered; -oxyCODONE 5MG TAB As Ordered
[2018-06-23 13:12] LABS: HEPATITIS B SURFACE ANTIBODY NEGATIVE (POSITIVE); HEPATITIS B SURFACE ANTIGEN NEGATIVE (NEGATIVE); HEPATITIS C VIRUS ABY INDEX 0.1 INDEX (<0.8); HIV 1&2 SCREEN CENTAUR NEGATIVE (NEGATIVE)
== END ==
LOC: M SFHCPLAZ 09:34
PROVIDERS: ATTEND Dermatology
DX: Z79.899 Other long term (current) drug therapy (principal)
CPT/HCPCS: 36415; 86480; 86704; 86706; 86803; 87340; 87389; G0463

== ENCOUNTER → 2019-02-02 | Outpatient (REF) | payer OTHER | LOC: M LAB REF 17:33 | PROVIDERS: ATTEND Dermatology | DX: L02.91 Cutaneous abscess, unspecified (principal) | CPT/HCPCS: 10060; 87070; 87076; 87205; G0463 ==

== ENCOUNTER 2020-08-06 16:27 | Inpatient (IN) | payer OTHER ==
[~2020-08-06] VITALS: Ht 162.6 cm; Wt 91.2 kg
[2020-08-06 19:45] VITALS: BP 129/60
[2020-08-06] MEDS ORDERED: NS 1,000 ML IV SCH (19:50)
[2020-08-06] MEDS ORDERED: GLUCOSE 4GM CHEW TABLET PO PRN (19:55)
[2020-08-06] MEDS ORDERED: GLUCAGON INJ 1MG VIAL SC PRN (19:55)
[2020-08-06] MEDS ORDERED: DEXTROSE 50% 50 ML SYRINGE IV PRN (19:55)
[2020-08-06] MEDS ORDERED: ACETAMINOPHEN TAB 650MG DOSE (2X325MG) PO PRN (20:35)
--- NOTE | 2020-08-06 20:53 | HPEPDOC ---
[facility] Medical History & Physical Date of Admission August 06, 2020 Date of Service: August 06, 2020 Attending Physician: LUCY VINCENT MD History and Physical CHIEF COMPLAINT: CHARLIE HISTORY OF PRESENT ILLNESS: Briana Harris is a 54 year old female who presented as a transfer from [facility] today due to acute kidney injury and hypotension. Patient states she went to the ED in [place] today due to difficulty with balance. She states this has been getting worse the past week. She reports having trouble walking and having to bring herself down to the ground. She denies hitting her head. The past few days she feels like her legs give out on her. She denies dizziness or lightheadedness. She states she otherwise feels well, although has not been eating as much. She tries to eat a low salt diet as she has heard salt can increase your risk of high blood pressure. PAST MEDICAL HISTORY: Diabetes mellitus HLD Sjorgren's syndrome Costochondritis Plaque psoriasis Psoriatic arthritis PAST SURGICAL HISTORY: Left knee replacement Right knee replacement Tubal ligation D&C x4 SOCIAL HISTORY: States she quit smoking 2 month ago. Previously smoking 1 ppd for approx 30 years, 30 pyh. Denies alcohol use. Denies illicit substance use. FAMILY HISTORY: Father and paternal grandmother each of pancreatic cancer. Mother with DM, HTN, heart disease. ALLERGIES: Please see below. REVIEW OF SYSTEMS: CONSTITUTIONAL: Denies fevers, chills, night sweats, fatigue, unexpected change in weight. HEENT: Denies change in vision, change in hearing. CARDIOVASCULAR: Denies chest pain, palpitations, shortness of breath, lightheadedness. RESPIRATORY: Denies dyspnea, cough, wheezing. GASTROINTESTINAL: Denies nausea, vomiting, abdominal pain, diarrhea, constipation, blood in stool. GENITOURINARY: Denies dysuria, urinary frequency, urinary urgency. SKIN: Denies new rash, lesions. MUSCULOSKELETAL: Endorses bilateral hip pain extending to her knees. NEUROLOGICAL: Denies headache, dizziness, weakness. PSYCHIATRIC: Denies change in mood. HOME MEDICATIONS: Please see below. PHYSICAL EXAMINATION: VITAL SIGNS: See below GENERAL: Alert, comfortable, in no acute distress HEENT: Normocephalic, atraumatic, sclera anicteric, dry mucous membranes NECK: Supple, trachea midline, no lymphadenopathy CARDIOVASCULAR: Regular rate and rhythm, normal S1 and S2. No murmurs, rubs, or gallops RESPIRATORY: Clear to auscultation bilaterally with equal air entry bilaterally. No wheezing, rhonchi, or rales. ABDOMEN: Obese, soft, nontender, nondistended, bowel sounds present EXTREMITIES: No cyanosis or edema. Pulses 2+/4 in bilateral upper and lower extremities NEUROLOGIC: Alert and oriented x3 to person, place and time. CN 2-12 grossly intact. No focal deficits appreciated PSYCHIATRIC: Mood and affect appropriate LABORATORY DATA: See below. IMAGING: None MICROBIOLOGY: Please see below. ASSESSMENT: PLAN: # CHARLIE - hold home lisinopril, pregabalin, metformin, pantoprazole. Avoid nephrotoxic agents. - s/p IV fluid bolus at [place], continue IV maintenance fluids - renal US ordered. UA and urine electrolytes ordered. - Check magnesium and phosphorus levels. Recheck BMP. # Hyponatremia, symptomatic - Na level 127 at [place]. continue IV fluids. Recheck BMP # Hypotension - improved s/p IV fluid bolus at [place] - continue IV maintenance fluids # Balance issues - likely 2/2 hyponatremia. No focal deficits on neurologic exam - fall precautions - PT/OT eval # Diabetes mellitus - hold home meds. Continue basal insulin 46 units daily - FSBS ACHS with SSI. Hypoglycemic protocol. consistent carb diet. # HLD - continue home statin and aspirin # Plaque psoriasis with psoriatic arthritis - continue duloxetine for chronic pain DVT Prophylaxis: sc heparin Disposition: admitted inpatient to med/surg pending clinical improvement Addendum: BMP recheck showed sodium level increased to 139. Called and discussed with Dr. Min, recommended d/c IV fluids and f/u AM BMP, no additional tr eatment. Consult placed, Dr. Min to see pt in the AM. Vital Signs Vital Signs Date Time Temp Pulse Resp B/P (MAP) Pulse Ox O2 Delivery O2 Flow Rate FiO2 08/06/20 19:45 97.6 106 18 129/60 (83) 92 Room Air Laboratory Data Labs 24H Laboratory Tests 2 08/06/20 20:45: Bedside Glucose (Misc Panel) 195H Home Medications Scheduled Aspirin (Aspirin) 81 Mg Tab.chew, 81 MG PO QHS Cetirizine HCl (Cetirizine HCl) 10 Mg Tablet, 10 MG PO QHS Dulaglutide (Trulicity) 0.75 Mg/0.5 Ml Pen.injctr, 0.75 MG SC QWEEK SATURDAY Duloxetine Hcl (Duloxetine HCl) 60 Mg Capsule.dr, 60 MG PO BID Insulin Aspart (Novolog Flexpen) 100 Unit/1 Ml Insuln.pen, 1 DOSE INJ SLIDING SC ROBERTA Insulin Degludec (Tresiba Flextouch U-200) 200 Unit/1 Ml Insuln.pen, 46 UNITS SC DAILY Lisinopril (Lisinopril) 5 Mg Tablet, 5 MG PO QHS Metformin HCl (Metformin HCl ER) 500 Mg Tab.er.24h, 1,000 MG PO BID Pantoprazole Sodium (Pantoprazole Sodium) 40 Mg Tablet.dr, 40 MG PO DAILY Pnv,Calcium 72/Iron/Folic Acid ( Vitamin Plus Low Iron) 1 Each Tablet, 1 TAB PO DAILY Pregabalin (Pregabalin) 150 Mg Capsule, 150 MG PO TID Rosuvastatin Calcium (Rosuvastatin Calcium) 40 Mg Tablet, 40 MG PO QHS Allergies Coded Allergies: Penicillins (Verified Allergy, Intermediate, RASH, 08/06/20) erythromycin base (Verified Adverse Reaction, Mild, GI DISTRESS, 08/06/20) ibuprofen (Verified Adverse Reaction, Mild, GI DISTRESS, 08/06/20) GME ATTESTATION GME ATTESTATION My faculty preceptor for this patient encounter was physically present during the encounter and was fully available. All aspects of the patient interview, e xamination, medical decision making process, and medical care plan development were reviewed and approved by the faculty preceptor. The faculty preceptor is aware and concurs with the plan as stated in the body of this note and will attest to such by his/her cosignature. ATTENDING NOTE Time of service 840pm Ms. Harris is a 54 yr old M w IDDM, DLP, Sjogrens & Psoriasis who presented at [facility] c/o of inability to walk and frequent falls. Prior to transfer for a higher level of care she was diagnosed with: # CHARLIE on CKD 4 # hypotension # hyponatremia (symptomatic ? ) # frequent falls Plan: her Lisinopril and Metformin are on hold / we will c/w IVF, check Phosph (if low this can cause weakness) / if the phosph is wnl we will check a CT of the head to r/o CVA / f/u w PT/OT Late Entry 11:35 PM #Over correction of hyponatremia Plan: because her Na increased from 125 to 139, we will consult Nephro to determine if we should start D5W to reverse her hyponatremia / neurochecks Late Entry 156AM # HyperCPKemia Because the CPK is <1000 this could be due to a neurological disorder and could also provide an alternative explanation for why she cant walk. Alternatively it could be due to a fall or drug use Plan: check UDS / trend CPK / f/u UA, which is still pending & uric acid PAT ARRIAZA D.O. August 06, 2020 20:53 LUCY VINCENT MD August 07, 2020 02:04
[2020-08-06] MEDS ORDERED: HumaLOG INSULIN (NovoLOG) PER UNIT SC SCH (21:00)
[2020-08-06] MEDS: HumaLOG INSULIN (NovoLOG) PER UNIT SC SCH (21:01)
[2020-08-06] MEDS ORDERED: NOVOINJ3 INJ (21:21)
[2020-08-06] MEDS ORDERED: ROSU40TA4 PO (21:21)
[2020-08-06] MEDS ORDERED: METF-838 PO (21:21)
[2020-08-06] MEDS ORDERED: LISI-898 PO (21:21)
[2020-08-06] MEDS ORDERED: PANT40TA29 PO (21:25)
[2020-08-06] MEDS ORDERED: CETI-24 PO (21:25)
[2020-08-06] MEDS ORDERED: PREN27TA3 PO (21:25)
[2020-08-06] MEDS ORDERED: ASPI1CHW2 PO (21:25)
[2020-08-06] MEDS ORDERED: PREG150C PO (21:25)
[2020-08-06] MEDS ORDERED: DULO1CAP6 PO (21:25)
[2020-08-06] MEDS ORDERED: TRUL10IN SC (21:25)
[2020-08-06] MEDS ORDERED: TRES1INJ SC (21:25)
[2020-08-06 21:39] LABS: CALCIUM LEVEL 8.9 MG/DL (8.5-10.1); CREATININE FOR GFR 1.92 MG/DL (0.55-1.30); GLOMERULAR FILTRATION RATE 29.1 (>51); MAGNESIUM LEVEL 1.9 MG/DL (1.8-2.4); PHOSPHORUS LEVEL 3.5 MG/DL (2.5-4.9); POTASSIUM SERUM 4.2 MEQ/L (3.5-5.1)
[2020-08-06] MEDS: ALBUTEROL SULFATE 2.5 MG/0.5 ML INH NEB SOLN NEB SCH (23:34)
[2020-08-07] VITALS: BP 107/72
[2020-08-07 00:23] LABS: CALCIUM LEVEL 9.1 MG/DL (8.5-10.1); CREATININE FOR GFR 1.56 MG/DL (0.55-1.30); PHOSPHORUS LEVEL 3.2 MG/DL (2.5-4.9); POTASSIUM SERUM 3.8 MEQ/L (3.5-5.1)
[2020-08-07] MEDS: ROSUVASTATIN 10 MG TAB (CRESTOR) PO SCH ×2 (02:15→21:02)
[2020-08-07] MEDS: CETIRIZINE (ZyrTEC) 10 MG TAB PO SCH ×2 (02:15→21:03)
[2020-08-07] MEDS: ASPIRIN 81 MG CHEW TABLET PO SCH ×2 (02:16→21:02)
[2020-08-07] MEDS: DULoxetine 30 MG CAP (CYMBALTA) PO SCH ×3 (02:16→21:02)
--- NOTE | 2020-08-07 02:47 | REPVR ---
PROCEDURE INFORMATION: Exam: CT Head Without Contrast Exam date and time: 08/07/2020 2:39 AM Age: 54 years old Clinical indication: Injury or trauma; Injury date: Unknown; Injury details: Multiple falls through out week; Additional info: Frequent falls R/O CVA TECHNIQUE: Imaging protocol: Computed tomography of the head without contrast. Radiation optimization: All CT scans at this facility use at least one of these dose optimization techniques: automated exposure control; mA and/or kV adjustment per patient size (includes targeted exams where dose is matched to clinical indication); or iterative reconstruction. Other technique: STROKE PROTOCOL was implemented. COMPARISON: No relevant prior studies available. FINDINGS: Brain: No intracranial mass, mass effect or midline shift. No acute intracranial hemorrhage. No CT evidence of acute cortical infarct. The Ventricles, cisterns, and sulci are normal in size for age. Bones/joints: No calvarial fracture or destructive process. Paranasal sinuses: Imaged paranasal sinuses are normally aerated. Mastoid air cells: Mastoid air cells and middle ear structures are normally aerated. Orbital cavity: Imaged orbits are unremarkable. Soft tissues: No focal extracranial soft tissue swelling. IMPRESSION: No acute or concerning focal intracranial abnormality. ASSESSMENT: ASPECTS ([place] Stroke Program Early CT Score) is 10. Electronically signed by: Yvon Stephenson On 08/07/2020 02:47:22 AM
[2020-08-07 02:48] LABS: URIC ACID 7.1 MG/DL (2.6-6.0)
[2020-08-07 04:00] VITALS: BP 124/69
[2020-08-07] MEDS: ALBUTEROL SULFATE 2.5 MG/0.5 ML INH NEB SOLN NEB SCH ×5 (04:07→20:52)
[2020-08-07 05:44] LABS: HEMATOCRIT 37.3 % (36.0-47.0); HEMOGLOBIN 12.4 g/dl (12.0-15.5); MEAN CORPUSCULAR HEMOGLOBIN 30.3 pg (27.0-33.0); MEAN CORPUSCULAR HGB CONC 33.2 g/dl (32.0-36.5); MEAN CORPUSCULAR VOLUME 91.2 fl (80.0-96.0); PLATELET COUNT, AUTOMATED 137 10^3/uL (150-450); RED BLOOD COUNT 4.09 10^6/uL (4.00-5.40); WHITE BLOOD COUNT 7.5 10^3/uL (4.0-10.0)
[2020-08-07 06:06] LABS: BLOOD UREA NITROGEN 22 MG/DL (7-18); CALCIUM LEVEL 9.1 MG/DL (8.5-10.1); CARBON DIOXIDE LEVEL 23 MEQ/L (21-32); CHLORIDE LEVEL 108 MEQ/L (98-107); CPK CREATINE PHOSPHOKINASE 675 U/L (26-192); CREATININE FOR GFR 1.02 MG/DL (0.55-1.30); GLOMERULAR FILTRATION RATE > 60.0 (>51); GLUCOSE, FASTING 140 MG/DL (70-100); MAGNESIUM LEVEL 1.9 MG/DL (1.8-2.4); POTASSIUM SERUM 4.1 MEQ/L (3.5-5.1); SODIUM LEVEL 140 MEQ/L (136-145)
[2020-08-07] MEDS ORDERED: HumaLOG INSULIN (NovoLOG) PER UNIT SC SCH (07:30)
[2020-08-07 07:33] VITALS: BP 136/77
[2020-08-07] MEDS: HEPARIN SOD (PORCINE) 5000UNITS/ML 1ML VIAL/SYRINGE SC SCH ×2 (08:21→21:02)
[2020-08-07] MEDS: HumaLOG INSULIN (NovoLOG) PER UNIT SC SCH ×4 (08:21→21:00)
[2020-08-07] MEDS: LEVEMIR (INSULIN DETEMIR) 1 UNITS/0.01ML SC SCH (08:21)
--- NOTE | 2020-08-07 08:47 | REP ---
INDICATION: CHARLIE. COMPARISON: None. TECHNIQUE: Real-time sonographic evaluation of the kidneys is performed. FINDINGS: Renal cortical echogenicity pattern is normal bilaterally and contours are smooth. There is no evidence of hydronephrosis, cyst, mass, or calculus in either kidney. The right kidney measures 11.0 x 5.9 x 5.4 cm. Left renal dimensions are 11.9 x 4.8 x 6.3 cm. Urinary bladder is collapsed, containing a Chaidez catheter. IMPRESSION: Negative renal ultrasound. <Electronically signed by Jesus Chery > 08/07/20 [id number]
--- NOTE | 2020-08-07 08:49 | IPNPDOC ---
Text Note Date of Service The patient was seen on 08/07/20. NOTE Subjective: Patient seen and examined at bedside. No acute overnight events reported. Patient voices no new medical complaints this morning. She states she is feeling much better. Objective: VITAL SIGNS: See below GENERAL: Alert, comfortable, NAD HEENT: NC/AT, EOMI CARDIOVASCULAR: RRR, +S1S2, -M/R/G RESPIRATORY: CTA B/L ABDOMEN: Obese, soft, nontender, nondistended, bowel sounds present EXTREMITIES: no edema Psych: AAOx3 A/P: 54 F presented as a transfer from [facility] for CHARLIE and hypotension. She originally presented for difficulty with walking and losing her balance, worsening over the past week. She reported having trouble walking and having to bring herself down to the ground. She denied head trauma. # CHARLIE - resolved - hold home lisinopril, pregabalin, metformin, pantoprazole. Avoid nephrotoxic agents. - s/p IV fluid bolus at [place], continue IV maintenance fluids - renal US ordered. UA and urine electrolytes ordered. - Check magnesium and phosphorus levels. Recheck BMP. - nephrology c/s pending # Hyponatremia, symptomatic - Na level 127 at [place] - s/p IV fluids, this morning Na is 140 - nephrology c/s pending # Hypotension - resolved - s/p IV fluid bolus at [place] # Balance issues - No focal deficits on neurologic exam - CT head unrevealing - fall precautions - PT/OT eval # Diabetes mellitus - hold home meds. Continue basal insulin 46 units daily - FSBS ACHS with SSI. Hypoglycemic protocol. consistent carb diet. # HLD - continue home statin and aspirin # Plaque psoriasis with psoriatic arthritis - continue duloxetine for chronic pain DVT Prophylaxis: sc heparin VS,Fishbone, I+O VS, Fishbone, I+O Laboratory Tests 08/06/20 20:59 08/06/20 23:41 08/07/20 05:05 Vital Signs Date Time Temp Pulse Resp B/P (MAP) Pulse Ox O2 Delivery O2 Flow Rate FiO2 08/07/20 07:33 97.8 96 18 136/77 (96) 96 Room Air I&O- Last 24 Hours up to 6 AM 08/07/20 06:00 Intake Total 960 ml Output Total 1570 ml Balance -610 ml DAVID NAZARIO MD August 07, 2020 08:49
[2020-08-07 12:34] VITALS: BP 109/66
[2020-08-07 18:24] VITALS: BP 135/74
[2020-08-07] MEDS ORDERED: ONDANSETRON 4 MG TAB PO PRN (18:50)
[2020-08-07 22:00] VITALS: BP 118/60
--- NOTE | 2020-08-07 23:01 | CR ---
CONSULTATION DATE: 08/07/2020 REQUESTING PHYSICIAN: Dr. Adrian Saavedra CONSULTING PHYSICIAN: Dr. Cleo Min REASON FOR CONSULTATION: Management of acute renal failure and hyponatremia CHIEF COMPLAINT: The patient was transferred from [facility] because of acute renal failure and she presented over there because of weakness and fall. HISTORY OF PRESENT ILLNESS: Briana Harris is a 54-year-old female with a past medical history of diabetes, Sjgren's syndrome, psoriasis, and other comorbidities as mentioned below. She was feeling very weak and tired at home. She had difficulty to maintain her balance and it was getting worse for the last one week. She was so weak she was unable to walk and was falling to the ground. When she presented to the Emergency Room at [facility] she was found to have acute renal failure. Of note, she was taking Lisinopril and Metformin at home. They were stopped. She was given IV fluid hydration and she was transferred to [facility] for a higher level of care. The patient also had a sodium of 127 at [facility] and because of multiple electrolyte abnormalities and acute renal failure, she was sent to the [facility] and through that, she was admitted under the Hospitalist Service. Nephrology Service was called for further help in the management of this patient. I saw and evaluated the patient today morning at the bedside. IV fluids were stopped yesterday because of sudden correction of her sodium from 127 to 139. The patient was able to provide me with a history and reports that she is feeling much better today as compared with yesterday. PAST MEDICAL HISTORY: The patient's past medical history is significant for: 1. Sjgren's syndrome. 2. Diabetes mellitus type 2. 3. Hyperlipidemia. 4. Plaque psoriasis. 5. Psoriatic arthritis. 6. Costochondritis. 7. History of hypertension. PAST SURGICAL HISTORY: The patient's past surgical history is significant for: 1. Status post left knee replacement. 2. Right knee replacement. 3. History of tubal ligation. 4. D&C x4 in the past. ALLERGIES: She is allergic to: 1. Penicillins. 2. Erythromycin. 3. Ibuprofen. FAMILY HISTORY: No significant family history of end-stage renal disease requiring hemodialysis. SOCIAL HISTORY: The patient is an ex-smoker. She quit 2 months ago. She denies any illicit drug abuse or alcohol abuse. REVIEW OF SYSTEMS: Constitutional: She denies any fevers or chills. Eyes: She denies any blurry vision, double vision. ENT: Denies any dysphagia or odynophagia. Cardiovascular: Denies any chest pain, palpitations. Respiratory: Denies any shortness of breath. GI: Denies any nausea or vomiting. Genitourinary: Denies any dysuria or hematuria. Musculoskeletal: She has muscle weakness bilaterally. Skin: She reports plaque psoriasis. Hematological/Oncological: She denies any easy bleeding or bruising. ROD BUSTER HELPER: The patient reports falls at home. All other review of systems is negative. PHYSICAL EXAMINATION: GENERAL APPEARANCE: The patient is awake, alert, oriented x3, laying in bed, obese body habitus. VITAL SIGNS: Temperature is 97.9 degrees Fahrenheit, blood pressure 109/66, pulse is 106, respiratory rate of 17, saturating 98% on room air. INTAKE AND OUTPUT: Urine output recorded as 570 mL yesterday and 1,975 mL so far today since overnight. HEAD AND NECK: Extraocular muscles intact. Pupils are equally round and reactive to light. Mucous membranes are moist. Neck is supple. There is no jugular venous distention. CARDIOVASCULAR: S1, S2, regular rate. EXTREMITIES: No edema of the bilateral lower extremities. RESPIRATORY: Chest is clear to auscultation bilaterally. Bilaterally currently no rales or rhonchi. ABDOMEN: Soft, positive bowel sounds, nontender, no organomegaly. MUSCULOSKELETAL: No clubbing, no cyanosis. Pulses are 2+. ROD BUSTER HELPER: No focal deficits. Power is 5/5 in all extremities. LAB REVIEW: CBC showed a WBC of 7.5, hemoglobin 12.4, platelet count 177. Urinalysis done yesterday showed 1+ blood and 1+ bacteria. BMP done on arrival yesterday showed sodium of 139. I was told that her sodium was 127 at [facility]. Potassium 4.2, chloride 106, bicarbonate 25, BUN 32, creatinine was 1.9. BMP done today morning showed sodium of 140, potassium 4.1, chloride 108, bicarbonate 23, BUN 22, creatinine is 1. Glucose 140, IMAGING DATA: A renal ultrasound was done which did not show any acute pathology. HOME MEDICATIONS: 1. The patient takes Aspirin 81 mg daily. 2. Cetirizine 10 mg daily. 3. Trulicity 0.75 mg subcutaneously once a week. 4. Duloxetine 60 mg p.o. twice daily. 5. Insulin as per sliding scale. 6. Tresiba 46 units subcutaneously daily. 7. Lisinopril 5 mg daily. 8. Metformin 1,000 mg p.o. twice daily. 9. Protonix 40 mg p.o. daily. 10. Lyrica 150 mg p.o. three times daily. 11. Rosuvastatin 40 mg p.o. q. h.s. CURRENT INPATIENT MEDICATIONS: The patient's medications were all reviewed by myself. She was given IV fluids yesterday. However normal saline has been stopped. She is on Tylenol p.r.n., Albuterol p.r.n., Aspirin 81 mg p.o. daily, Cetirizine 10 mg q. h.s., Cymbalta 60 mg twice daily, Levemir 46 units subcutaneously daily, insulin Lispro sliding scale, Zofran p.r.n., Rosuvastatin 40 mg q. h.s. ASSESSMENT AND PLAN: 1. Acute renal failure most likely this was secondary to dehydration, the use of Lisinopril and Metformin at home she was given IV fluids at [facility]. Her renal function is already improving. No need of IV fluid hydration. 2. Hyponatremia - The patient has hypovolemic hyponatremia. On arrival at [facility], sodium was 127. It had improved to 139 by the time she arrived to our hospital. IV fluids were stopped. Sodium is staying stable now, close to 140. No further intervention is needed at this time. 3. Hypotension - The patient got IV fluids on arrival. Lisinopril was stopped. The patient should not get any more Lisinopril at this time. 4. Diabetes mellitus type 2 - The patient continues to be on insulin sliding scale. Trulicity and Metformin have been stopped because of acute renal failure. I would recommend to hold the Metformin at this time, and if she tolerates slowly, it will be started as an outpatient. 5. Recent falls it was secondary to hypotension, acute renal failure, and hyponatremia. She is getting a PT evaluation. Power is 5/5 at this time on arrival. Thank you for involving me in the care of this patient. I shall be happy to follow the patient along with you tomorrow morning.
[2020-08-08] MEDS: ALBUTEROL SULFATE 2.5 MG/0.5 ML INH NEB SOLN NEB SCH ×3 (00:25→07:46)
[2020-08-08 06:00] VITALS: BP 137/66
[2020-08-08 06:53] LABS: HEMATOCRIT 38.6 % (36.0-47.0); HEMOGLOBIN 12.7 g/dl (12.0-15.5); MEAN CORPUSCULAR HEMOGLOBIN 29.6 pg (27.0-33.0); MEAN CORPUSCULAR HGB CONC 32.9 g/dl (32.0-36.5); PLATELET COUNT, AUTOMATED 152 10^3/uL (150-450); RED BLOOD COUNT 4.29 10^6/uL (4.00-5.40); WHITE BLOOD COUNT 5.5 10^3/uL (4.0-10.0)
[2020-08-08 07:22] LABS: CALCIUM LEVEL 9.7 MG/DL (8.5-10.1); CARBON DIOXIDE LEVEL 28 MEQ/L (21-32); CHLORIDE LEVEL 104 MEQ/L (98-107); CPK CREATINE PHOSPHOKINASE 305 U/L (26-192); CREATININE FOR GFR 0.75 MG/DL (0.55-1.30); GLOMERULAR FILTRATION RATE > 60.0 (>51); GLUCOSE, FASTING 163 MG/DL (70-100); MAGNESIUM LEVEL 1.6 MG/DL (1.8-2.4); POTASSIUM SERUM 3.4 MEQ/L (3.5-5.1); SODIUM LEVEL 138 MEQ/L (136-145)
[2020-08-08 07:23] LABS: BLOOD UREA NITROGEN 10 MG/DL (7-18)
[2020-08-08] MEDS ORDERED: POTASSIUM CHLORIDE 10 MEQ SR TABLET PO ONE (08:00)
[2020-08-08] MEDS: HEPARIN SOD (PORCINE) 5000UNITS/ML 1ML VIAL/SYRINGE SC SCH (08:41)
[2020-08-08] MEDS: HumaLOG INSULIN (NovoLOG) PER UNIT SC SCH (08:42)
[2020-08-08] MEDS: LEVEMIR (INSULIN DETEMIR) 1 UNITS/0.01ML SC SCH (08:42)
[2020-08-08] MEDS: DULoxetine 30 MG CAP (CYMBALTA) PO SCH (08:42)
[2020-08-08 09:53] LABS: PTH INTACT 71.2 PG/ML (18.5-88.0)
[2020-08-08] MEDS ORDERED: METF500T13 PO ×2 (10:24→10:30)
--- NOTE | 2020-08-08 15:49 | DS.PDOC ---
Discharge Summary General Date of Admission August 06, 2020 at 19:41 Date of Discharge 08/08/20 Discharge Summary PROCEDURES PERFORMED DURING STAY: [None]. DISCHARGE DIAGNOSES: # CHARLIE # Hyponatremia, symptomatic # Hypotension # Balance issues # Diabetes mellitus # HLD # Plaque psoriasis with psoriatic arthritis COMPLICATIONS/CHIEF COMPLAINT: CHARLIE. HISTORY OF PRESENT ILLNESS: Briana Harris is a 54 year old female who presented as a transfer from [facility] today due to acute kidney injury and hypotension. Patient states she went to the ED in [place] today due to difficulty with balance. She states this has been getting worse the past week. She reports having trouble walking and having to bring herself down to the ground. She denies hitting her head. The past few days she feels like her legs give out on her. She denies dizziness or lightheadedness. She states she otherwise feels well, although has not been eating as much. She tries to eat a low salt diet as she has heard salt can increase your risk of high blood pressure. HOSPITAL COURSE: 54 F presented as a transfer from [facility] for CHARLIE and hypotension. She originally presented for difficulty with walking and losing her balance, worsening over the past week. She reported having trouble walking and having to bring herself down to the ground. She denied head trauma. # CHARLIE - resolved - hold home lisinopril, pregabalin, metformin, pantoprazole. Avoid nephrotoxic agents. - s/p IV fluid bolus at [place], continue IV maintenance fluids - renal US ordered. UA and urine electrolytes ordered. - Check magnesium and phosphorus levels. Recheck BMP. - nephrology c/s pending # Hyponatremia, symptomatic - Na level 127 at [place] - s/p IV fluids, this morning Na is 140 - nephrology c/s pending # Hypotension - resolved - s/p IV fluid bolus at [place] # Balance issues - No focal deficits on neurologic exam - CT head unrevealing - fall precautions - PT/OT eval # Diabetes mellitus - hold home meds. Continue basal insulin 46 units daily - FSBS ACHS with SSI. Hypoglycemic protocol. consistent carb diet. # HLD - continue home statin and aspirin # Plaque psoriasis with psoriatic arthritis - continue duloxetine for chronic pain DISCHARGE MEDICATIONS: Please see below. ALLERGIES: Please see below. PHYSICAL EXAMINATION ON DISCHARGE: VITAL SIGNS: Please see below. GENERAL: Alert, comfortable, NAD HEENT: NC/AT, EOMI CARDIOVASCULAR: RRR, +S1S2, -M/R/G RESPIRATORY: CTA B/L ABDOMEN: Obese, soft, nontender, nondistended, bowel sounds present EXTREMITIES: no edema Psych: AAOx3 LABORATORY DATA: Please see below. ACTIVITY: [As tolerated]. DISPOSITION: 01 Home, Self-Care. DISCHARGE INSTRUCTIONS: 1. PCP in 3-5 days 2. Nephrology as scheduled. DISCHARGE CONDITION: [Stable]. TIME SPENT ON DISCHARGE: 35 minutes. Vital Signs/I&Os Vital Signs Date Time Temp Pulse Resp B/P (MAP) Pulse Ox O2 Delivery O2 Flow Rate FiO2 08/08/20 06:00 97.7 66 16 137/66 (89) 99 Room Air I&O- Last 24 Hours up to 6 AM 08/08/20 06:00 Intake Total 340 ml Output Total 1175 ml Balance -835 ml Laboratory Data Labs 24H Laboratory Tests 2 08/07/20 17:08: Bedside Glucose (Misc Panel) 194H 08/07/20 20:59: Bedside Glucose (Misc Panel) 184H 08/08/20 06:14: Nucleated Red Blood Cells % (auto) 0.0, Anion Gap 6L, Glomerular Filtration Rate > 60.0, Calcium Level 9.7, Magnesium Level 1.6L, Total Creatine Kinase 305H CBC/BMP Laboratory Tests 08/08/20 06:14 FSBS Laboratory Tests Test 08/07/20 17:08 08/07/20 20:59 Range/Units Bedside Glucose (Misc Panel) 194 184 70-105 MG/DL Discharge Medications Scheduled Aspirin (Aspirin) 81 Mg Tab.chew, 81 MG PO QHS, (Reported) Cetirizine HCl (Cetirizine HCl) 10 Mg Tablet, 10 MG PO QHS, (Reported) Dulaglutide (Trulicity) 0.75 Mg/0.5 Ml Pen.injctr, 0.75 MG SC QWEEK, (Reported) SATURDAY Duloxetine Hcl (Duloxetine HCl) 60 Mg Capsule.dr, 60 MG PO BID, (Reported) Insulin Aspart (Novolog Flexpen) 100 Unit/1 Ml Insuln.pen, 1 DOSE INJ SLIDING SCALE, (Reported) Insulin Degludec (Tresiba Flextouch U-200) 200 Unit/1 Ml Insuln.pen, 46 UNITS SC DAILY, (Reported) Metformin HCl (Metformin HCl) 500 Mg Tablet, 1 TAB PO BID Pantoprazole Sodium (Pantoprazole Sodium) 40 Mg Tablet.dr, 40 MG PO DAILY, (Reported) Pnv,Calcium 72/Iron/Folic Acid ( Vitamin Plus Low Iron) 1 Each Tablet, 1 TAB PO DAILY, (Reported) Pregabalin (Pregabalin) 150 Mg Capsule, 150 MG PO TID, (Reported) Rosuvastatin Calcium (Rosuvastatin Calcium) 40 Mg Tablet, 40 MG PO QHS, (Reported) Allergies Coded Allergies: Penicillins (Verified Allergy, Intermediate, RASH, 08/06/20) erythromycin base (Verified Adverse Reaction, Mild, GI DISTRESS, 08/06/20) ibuprofen (Verified Adverse Reaction, Mild, GI DISTRESS, 08/06/20) DAVID NAZARIO MD August 08, 2020 15:49
--- NOTE | 2020-08-08 15:53 | IPN ---
PROGRESS NOTE DATE: 08/08/2020 SUBJECTIVE: Patient was seen and examined at the bedside today morning. She is afebrile, hemodynamically stable. Her renal function is stable. Creatinine has further improved to 0.75. Sodium is also stable. She denies any active complaints at this time. OBJECTIVE: Vital signs: Temperature is 97.7 degrees Fahrenheit, blood pressure 137/66, pulse is 56, respiratory rate of 16, saturating 99% on room air. Intake and output: Urine output recorded is 1.9 liters today, 200 mL so far today since overnight. Weight in the bed scale is 91.2 kg. PHYSICAL EXAMINATION: General: Patient is awake, alert, oriented times three, laying in bed, no apparent distress. Head and neck exam: Extraocular muscles intact. Pupils equally round and reactive to light. Mucous membranes are moist. Neck is supple. There is no jugular venous distension (JVD). Cardiovascular: S1, S2, regular rate. No edema of the bilateral lower extremities. Respiratory: Chest is clear to auscultation bilaterally. Abdomen: Soft, positive bowel sounds, nontender. Musculoskeletal: No clubbing or cyanosis. Pulses are 2+. Central nervous system (DENTAL PRACTICE MANAGER): No focal deficit. Power is 5/5 in all extremities. LABORATORY REVIEW: CBC showed WBC 5.5, hemoglobin 12.7, platelets are 152. BMP showed sodium 138, potassium 3.4, chloride 104, bicarbonate 28, BUN is 10, creatinine is 0.75, sugar is 163, magnesium 1.6, total creatine kinase is 305. CURRENT INPATIENT MEDICATIONS: Patient's medications were all reviewed by myself. There is no change in the medications today as compared with yesterday except that she was given a dose of potassium chloride 40 mEq. ASSESSMENT AND PLAN: 1. Acute renal failure superimposed on chronic kidney disease. It was secondary to use of lisinopril and metformin and dehydration. Renal function is significantly better and back to baseline. 2. Hypotension. Patient's blood pressure is stable now. Avoid further use of lisinopril after discharge from the hospital. 3. Diabetes mellitus type 2. Renal function has improved. Trulicity and metformin was stopped on admission. Patient can be slowly restarted on metformin 500 mg by mouth twice a day but she will need to followup with nephrology as outpatient to make sure her renal function does not get worse again. 4. Recent fall and elevated creatine phosphokinase (CPK) levels. CPK levels are improving at this time. It is okay to continue the statins for now. 5. Hypokalemia. Patient was given 40 mEq oral potassium. DISPOSITION: It is okay to discharge the patient from nephrology standpoint. Nephrology service is going to sign off at this moment. Please followup with nephrology service within 2 weeks after discharge from the hospital.
== END 2020-08-08 12:40 | disposition home or self-care (01) | DRG 683 ==
LOC: M PCU 19:41 → M MSPAV 08-07 12:35
PROVIDERS: ADMIT Internal Medicine; ATTEND Internal Medicine
DX: N17.9 Acute kidney failure, unspecified (principal); E87.1 Hypo-osmolality and hyponatremia; E11.9 Type 2 diabetes mellitus without complications; I95.9 Hypotension, unspecified; L40.0 Psoriasis vulgaris; L40.50 Arthropathic psoriasis, unspecified; Z79.899 Other long term (current) drug therapy; Z79.82 Long term (current) use of aspirin; Z79.4 Long term (current) use of insulin; Z88.0 Allergy status to penicillin; Z88.6 Allergy status to analgesic agent; Z96.653 Presence of artificial knee joint, bilateral; E78.5 Hyperlipidemia, unspecified

== ENCOUNTER → 2021-10-26 | Outpatient (CLI) | payer OTHER ==
[~2021-10-26] MED LIST changes: +ASPI1CHW2 PO; +CETI-24 PO; +DULO1CAP6 PO; +LISI5TAB11 PO; +METF-838 PO; +METF500T13 PO; +NOVOINJ3 INJ; +PANT40TA29 PO; +PREG150C PO; +PREN27TA3 PO; +ROSU40TA4 PO; +TRES1INJ SC; +TRUL10IN SC
[2021-10-26 09:56] LABS: BLOOD UREA NITROGEN 4 MG/DL (7-18); CREATININE FOR GFR 0.67 MG/DL (0.55-1.30); GLOMERULAR FILTRATION RATE > 60.0 (>51)
== END ==
LOC: M LAB 09:03
PROVIDERS: ATTEND Otolaryngology
DX: D37.030 Neoplasm of uncertain behavior of the parotid salivary glands (principal)

== ENCOUNTER → 2021-10-31 | Outpatient (CLI) | payer OTHER ==
[~2021-10-31] MED LIST changes: +ISOVUE-370 76% 100ML VIAL As Ordered ONE
== END ==
LOC: M RAD 14:54
PROVIDERS: ATTEND Otolaryngology
DX: D37.030 Neoplasm of uncertain behavior of the parotid salivary glands (principal)
CPT/HCPCS: 70491; Q9967

== ENCOUNTER 2024-10-13 09:31 | Day surgery (SDC) | payer OTHER ==
[~2024-10-13] VITALS: Ht 161.3 cm; Wt 60.3 kg
[~2024-10-13 09:31] MED LIST changes: +BUSP15TA47 PO; +GLIP5TAB17 PO; -GLIP5TAB8 PO; -ISOVUE-370 76% 100ML VIAL As Ordered ONE; +JARD1TAB PO; +LANTINJ4 SQ; -PREG150C PO; +PREG150C2 PO; +QUET100T2 PO; -ROSU40TA4 PO; +ROSU40TA81 PO; +SIMV40TA20 PO
[2024-10-13 12:35] VITALS: TEMP 97.3
[2024-10-13 12:51] VITALS: BP 132/65; O2SAT 99
== END 2024-10-13 13:00 | disposition home or self-care (01) ==
LOC: M OPP 09:31
PROVIDERS: ATTEND Surgery
DX: K22.70 Barrett's esophagus without dysplasia (principal); K22.89 Other specified disease of esophagus; K31.89 Other diseases of stomach and duodenum; R10.13 Epigastric pain; R93.3 Abnormal findings on diagnostic imaging of other parts of digestive tract; Z88.0 Allergy status to penicillin; Z88.1 Allergy status to other antibiotic agents; Z88.8 Allergy status to other drugs, medicaments and biological substances; Z91.018 Allergy to other foods; Z79.4 Long term (current) use of insulin; Z79.84 Long term (current) use of oral hypoglycemic drugs; Z79.899 Other long term (current) drug therapy; F17.210 Nicotine dependence, cigarettes, uncomplicated